=== PATIENT | female | born 1955 | race Caucasian/White ===

== ENCOUNTER 2023-10-15 12:38 | Inpatient (IN) | payer MEDICARE, OTHER ==
[~2023-10-15] VITALS: Ht 149.9 cm; Wt 43.1 kg
[2023-10-15] MEDS: IV NORMAL SALINE 1000 ML BAG IV ONE (12:55)
[2023-10-15 13:11] LABS: BASOPHILS # (AUTO) 0.1 K/UL (0.0-0.2); BASOPHILS % (AUTO) 1.1 % (0.0-2.0); EOSINOPHILS # (AUTO) 0.3 K/uL (0.0-0.7); EOSINOPHILS % (AUTO) 5.3 % (0.0-7.0); HEMATOCRIT 39.7 % (31.2-41.9); HEMOGLOBIN 12.9 g/dL (10.9-14.3); LYMPHOCYTES # (AUTO) 1.5 K/uL (0.8-4.8); LYMPHOCYTES % (AUTO) 23.1 % (20.5-51.5); MEAN CORPUSCULAR HEMOGLOBIN 30.6 uug (24.7-32.8); MEAN CORPUSCULAR HGB CONC 33 g/dL (32.3-35.6); MEAN CORPUSCULAR VOLUME 94.1 fL (75.5-95.3); MONOCYTES # (AUTO) 0.4 K/uL (0.1-1.30); MONOCYTES % (AUTO) 5.7 % (0.0-11.0); NEUTROPHILS # (AUTO) 4.2 K/uL (1.8-8.9); NEUTROPHILS % (AUTO) 64.8 % (38.5-71.5); PLATELET COUNT (AUTO) 214 K/uL (179-408); RED BLOOD CELL COUNT(AUTO) 4.22 MIL/uL (3.63-4.92); RED CELL DISTRIBUTION WIDTH 13.2 % (12.3-17.7); WHITE BLOOD COUNT (AUTO) 6.4 K/uL (3.8-11.8)
[2023-10-15 13:13] LABS: DIFFERENTIAL COMMENT 1
[2023-10-15 13:26] LABS: CALCIUM 9.6 mg/dL (8.5-10.1); CARBON DIOXIDE 27 mmol/L (21-32); CHLORIDE 104 mmol/L (98-107); GLUCOSE 207 mg/dL (74-106); POTASSIUM 4.8 mmol/L (3.5-5.1); SODIUM SERUM 139 mmol/L (136-145); UREA NITROGEN, BLOOD 14 mg/dL (7-18)
[2023-10-15 14:40] LABS: *BILIRUBIN,URIN NEGATIVE (NEGATIVE); *CLARITY,URINE CLEAR (CLEAR); *COLOR,URINE YELLOW (YELLOW); *KETONES,URINE NEGATIVE (NEGATIVE); *PROTEIN,URINE NEGATIVE (NEGATIVE); *UROBILINOGEN,URINE 0.2 E.U./dl (NORMAL); LEUKOCYTE ESTERASE ,URINE TRACE (NEGATIVE); NITRITE, URINE NEGATIVE (NEGATIVE); PH,URINE 6.5 (5.0-8.0); UGLUCOSE NEGATIVE (NEGATIVE)
[2023-10-15 14:44] LABS: *BLOOD, URINE TRACE (NEGATIVE)
[2023-10-15 14:52] LABS: BACTERIA,URINE MODERATE /HPF (NONE SEEN); SQUAMOUS EPITHELIAL CELL,UR MANY /HPF (NONE SEEN)
[2023-10-15] MEDS ORDERED: ACETAMINOPHEN 325 MG TABLET ONE (16:55)
[2023-10-15] MEDS ORDERED: KETOROLAC TROMETHAMINE 15 MG INJ ONE (16:55)
[2023-10-15] MEDS: KETOROLAC TROMETHAMINE 15 MG INJ IVP ONE (16:59)
[2023-10-15] MEDS: ACETAMINOPHEN 325 MG TABLET PO ONE (17:00)
[2023-10-15] MEDS ORDERED: DULO20CA19 PO (17:32)
[2023-10-15] MEDS ORDERED: RIZA10TA28 PO (17:32)
[2023-10-15] MEDS ORDERED: CARI350T27 PO (17:32)
[2023-10-15] MEDS ORDERED: LITH300T3 PO (17:32)
[2023-10-15] MEDS ORDERED: OLAN2.5T27 PO (17:32)
[2023-10-15] MEDS ORDERED: ATOR10TA PO (17:32)
[2023-10-15] MEDS ORDERED: LORA-259 PO (17:32)
[2023-10-15 20:00] VITALS: BP 125/60; TEMP 98.4; O2SAT 98
[2023-10-15] MEDS ORDERED: CARISOPRODOL 350 MG TABLET ONE ×2 (20:09→20:10)
[2023-10-15] MEDS: CARISOPRODOL 350 MG TABLET PO SCH (20:19)
[2023-10-15] MEDS: DULOXETINE 20 MG CAPSULE.DR PO SCH (20:19)
[2023-10-15] MEDS: ATORVASTATIN 10 MG TABLET PO SCH (21:00)
[2023-10-15] MEDS: DOCUSATE SODIUM 100 MG CAPSULE PO SCH (21:27)
[2023-10-15] MEDS: TRAMADOL HCL 50 MG TABLET PO PRN (21:27)
[2023-10-15] MEDS: LORAZEPAM 1 MG TABLET PO PRN (21:31)
[2023-10-15] MEDS: OLANZAPINE 2.5 MG TABLET PO SCH (21:52)
[2023-10-16] VITALS: BP 115/54; TEMP 98.4; O2SAT 98
[2023-10-16 04:00] VITALS: BP 109/55; TEMP 98.2; O2SAT 97
[2023-10-16] MEDS: PANTOPRAZOLE SODIUM 40 MG TABLET.DR PO SCH (06:08)
[2023-10-16 07:14] LABS: BASOPHILS % (AUTO) 0.7 % (0.0-2.0); EOSINOPHILS # (AUTO) 0.6 K/uL (0.0-0.7); EOSINOPHILS % (AUTO) 9.6 % (0.0-7.0); HEMATOCRIT 36.7 % (31.2-41.9); HEMOGLOBIN 11.9 g/dL (10.9-14.3); LYMPHOCYTES # (AUTO) 2.8 K/uL (0.8-4.8); LYMPHOCYTES % (AUTO) 42.1 % (20.5-51.5); MEAN CORPUSCULAR HEMOGLOBIN 30.5 uug (24.7-32.8); MEAN CORPUSCULAR HGB CONC 32 g/dL (32.3-35.6); MEAN CORPUSCULAR VOLUME 93.9 fL (75.5-95.3); MONOCYTES # (AUTO) 0.6 K/uL (0.1-1.30); NEUTROPHILS # (AUTO) 2.6 K/uL (1.8-8.9); NEUTROPHILS % (AUTO) 38.6 % (38.5-71.5); PLATELET COUNT (AUTO) 227 K/uL (179-408); RED BLOOD CELL COUNT(AUTO) 3.91 MIL/uL (3.63-4.92); RED CELL DISTRIBUTION WIDTH 13.1 % (12.3-17.7); WHITE BLOOD COUNT (AUTO) 6.6 K/uL (3.8-11.8)
[2023-10-16 07:26] LABS: DIFFERENTIAL COMMENT 1
[2023-10-16 08:00] LABS: ALBUMIN 3.2 g/dL (3.4-5.0); BILIRUBIN,TOTAL 0.5 mg/dL (0.2-1.0); CALCIUM 9.2 mg/dL (8.5-10.1); CREATININE 0.8 mg/dL (0.6-1.3); PHOSPHOROUS 3.2 mg/dL (2.5-4.9); POTASSIUM 4.2 mmol/L (3.5-5.1)
[2023-10-16] MEDS: ACETAMINOPHEN 325 MG TABLET PO PRN (08:48)
[2023-10-16] MEDS: LITHIUM CARBONATE 300 MG CAPSULE PO SCH (08:48)
[2023-10-16 09:42] VITALS: BP_SYST 121; BP_SYST 132; BP_SYST 137; BP_DIAS 65; BP_DIAS 72; BP_DIAS 74
[2023-10-16] MEDS: NITROFURANTOIN/NITROFURAN MAC 100 MG CAPSULE PO SCH (10:54)
[2023-10-16] MEDS: SUMATRIPTAN SUCCINATE 6 MG/0.5 ML VIAL SQ ONE (11:24)
[2023-10-16] MEDS: IV NS 1000 ML 1,000 ML IV PRN (17:22)
[2023-10-16] MEDS ORDERED: LORA-259 PO (17:41)
[2023-10-16 20:00] VITALS: BP 130/66; TEMP 98.5; O2SAT 100
[2023-10-17 06:00] VITALS: BP 127/68; TEMP 98; O2SAT 98
[2023-10-17 08:00] VITALS: BP 147/77; TEMP 98.2; O2SAT 97
[2023-10-17] MEDS: HYDROCODONE/APAP 10-325 MG TABLET PO ONE (10:51)
[2023-10-17 11:43] VITALS: BP 145/67; TEMP 98.3; O2SAT 100
[2023-10-17] MEDS ORDERED: HYDR-3980 PO (12:05)
[2023-10-17] MEDS: CARISOPRODOL 350 MG TABLET PO SCH (12:16)
[2023-10-17] MEDS ORDERED: CARISOPRODOL 350 MG TABLET PO SCH (14:00)
== END 2023-10-17 13:35 | disposition home or self-care (01) | DRG 83 ==
LOC: ER 12:38 → TELE3 17:21 → MEDSURG3 10-16 10:58
PROVIDERS: ADMIT Internal Medicine; ATTEND Internal Medicine
DX: S06.9XAA Unspecified intracranial injury with loss of consciousness status unknown, initial encounter (principal); N39.0 Urinary tract infection, site not specified; E86.0 Dehydration; W18.39XA Other fall on same level, initial encounter; E78.5 Hyperlipidemia, unspecified; G62.9 Polyneuropathy, unspecified; G89.4 Chronic pain syndrome; Z98.1 Arthrodesis status; G43.909 Migraine, unspecified, not intractable, without status migrainosus; M19.90 Unspecified osteoarthritis, unspecified site; S06.9X0A Unspecified intracranial injury without loss of consciousness, initial encounter; R40.2142 Coma scale, eyes open, spontaneous, at arrival to emergency department; R40.2362 Coma scale, best motor response, obeys commands, at arrival to emergency department; R40.2252 Coma scale, best verbal response, oriented, at arrival to emergency department; X58.XXXA Exposure to other specified factors, initial encounter; Y93.9 Activity, unspecified; I95.1 Orthostatic hypotension; Z79.899 Other long term (current) drug therapy; R93.1 Abnormal findings on diagnostic imaging of heart and coronary circulation; Y92.512 Supermarket, store or market as the place of occurrence of the external cause
CPT/HCPCS: 36415; 70450; 71045; 83735; 84100; 84443; 84484; 85025; 93005; 93307; 93880; A4606; A4663; G0378; J1885; J3030; J7040